=== PATIENT | female | born 1955 | race Caucasian/White ===

== ENCOUNTER 2017-01-18 09:07 | Outpatient (CLI) | payer BC ==
--- NOTE | 2017-01-18 11:00 | RAD ---
FIVE VIEWS OF THE CERVICAL SPINE: Date: 01-18-17 History: Cervical radiculopathy. FINDINGS: Images include frontal, open mouth odontoid, neutral lateral, flexion lateral and extension lateral views. There is fusion hardware and intervertebral disc device at C6-7. No evidence for hardware failure. N o prevertebral soft tissue swelling. Open mouth odontoid view demonstrates a normal appearing dense and C1-2 articulation. The neutral lateral imaging demonstrates mild disc space narrowing and posterior osteophyte formatio n at C5-6 with minimal C5-6 retrolisthesis in the 2-3 mm range. With flexion and extension, the mild retrolisthesis at C5-6 is unchanged. IMPRESSION: Disc space narrowing and posterior osteophyte formation at C5-6 with minimal associated retrolisthes is. Post-operative changes as detailed above. POS: [facility]
--- NOTE | 2017-01-18 12:11 | MRI ---
MRI CERVICAL SPINE WITH AND WITHOUT CONTRAST: Technique: Multiplanar, multisequential imaging of the cervical spine obtained. Post contrast images obtained with administration of 14 cc MultiHance IV. History: Cervical radiculopathy. Pain with radiation to upper extremity. FINDINGS: Post-operative changes are noted at C6-7. There is an interbody implant at C6-7 producing significan t metallic artifact. Comparison made to plain films. The cervical vertebrae maintain height and alignment. There is mild loss of disc space at C5-6. Mild degenerative changes. There is posterior disc bulge and spondylosis at C3-4 abutting the anterior cord. Facet and uncinate hypertrophy results in left foraminal stenosis at this level. C4-5: Posterior disc bulge and spondylosis abuts the anterior cord slightly to the right of midline. No significant foraminal stenosis apparent. C5-6: Posterior disc bulge and spondylosis abutt the anterior cord. Bilateral foraminal narrowing du e to facet and uncinate hypertrophy. C6-7: Fusion changes at C6-7. No significant disc bulge or spondylosis at this level. No evidence of foraminal stenosis. C7-T1: There is a slight anterior subluxation measured at 2-3 mm. There is a broad based disc bulge with spondolytic changes which abutt the posterior cord. No evidence of significant foraminal encroa chment. There is a syrinx in the cord extending from C6-7 disc to the mid body of T1 measuring 3.0 cm cranio caudal dimension in the sagittal plane. There is no evidence of cord enhancement associated with syr inx. Cord signal is otherwise normally maintained. IMPRESSION: 1. Post-operative changes at C6-7 with interbody implant producing metallic artifact. 2. At C7-T1 slight subluxation with posterior disc bulge and spondylosis abutting the cord. 3. Spondylytic changes at C4-5 and C5-6 as described above with foraminal encroachment. 4. 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 POS: [facility]
[2017-01-18] MEDS ORDERED: Gadobenate Dimeglumine 529 MG/1 ML (20ML VIAL) ONE (16:04)
== END 2017-01-18 09:08 | disposition home or self-care (01) ==
LOC: TBSIIMAG 09:07
PROVIDERS: ATTEND Surgery
DX: M50.121 Cervical disc disorder at C4-C5 level with radiculopathy (principal); M50.122 Cervical disc disorder at C5-C6 level with radiculopathy; M47.26 Other spondylosis with radiculopathy, lumbar region; M43.12 Spondylolisthesis, cervical region; M48.02 Spinal stenosis, cervical region; S13.180A Subluxation of C7/T1 cervical vertebrae, initial encounter; Z98.890 Other specified postprocedural states
CPT/HCPCS: 72050; 72156; A9579

== ENCOUNTER 2017-03-28 06:04 | Inpatient (IN) | payer BC ==
[2017-03-27 08:14] VITALS: BMI 27.4
[2017-03-28] MEDS ORDERED: CEFAZOLIN/Water 2 GM/20 ML SYRINGE ONE (06:19)
[2017-03-28] MEDS ORDERED: Sodium Chloride 0.9% 10 ML ONE ×2 (06:27→19:27)
[2017-03-28] MEDS ORDERED: Thrombin 5000 UNITS/5 ML VIAL ONE (06:27)
[2017-03-28] MEDS ORDERED: Famotidine/PF 20 mg/2ml Vial ONE (06:58)
[2017-03-28] MEDS ORDERED: Midazolam HCl 2 mg/2 ml Vial ONE (07:09)
[2017-03-28 07:10] LABS: Mean Corpuscular HGB CONC 32.6 g/dL (32.0-36.0); Mean Corpuscular Hemoglobin 33.2 pg (27.0-31.0); Mean Platelet Volume 7.4 fL (7.4-10.4); Platelet Count 198 thou/uL (130-400); RBC Distribution Width 10.8 % (11.5-14.5); White Blood Cell (WBC) Count 5.8 thou/uL (4.8-10.8)
[2017-03-28 07:18] LABS: PTT 30.4 SEC (22.9-36.1); Prothrombin Time 13.2 SEC (12.0-14.7)
[2017-03-28] MEDS ORDERED: Fentanyl 250 MCG/5 ML VIAL ONE (07:26)
[2017-03-28 07:30] LABS: Anion Gap 12 mmol/L (10-20); BUN (Urea Nitrogen) 14 mg/dL (9.8-20.1); Calc. Creatinine Clearance 94 mL/min (70-130); Calcium 9.5 mg/dL (7.8-10.44); Carbon Dioxide 26 mmol/L (22-29); Chloride 106 mmol/L (98-107); Estimated GFR-MDRD 81; Glucose 88 mg/dL (70-105); Sodium 140 mmol/L (136-145)
[2017-03-28] MEDS ORDERED: Ondansetron HCl/PF 4 MG/2 ML Vial IVP PRN ×2 (08:51→10:15)
[2017-03-28] MEDS ORDERED: Meperidine HCl/PF 25 MG/ML VIAL SLOW IVP PRN (08:51)
[2017-03-28] MEDS ORDERED: Promethazine HCl 25 MG/ML VIAL SLOW IVP PRN (08:51)
[2017-03-28] MEDS ORDERED: HYDROmorphone 2 MG/ML VIAL SLOW IVP PRN (08:51)
[2017-03-28] MEDS ORDERED: Promethazine HCl 25 MG/ML VIAL IM PRN ×2 (08:51→10:15)
[2017-03-28] MEDS ORDERED: Morphine Sulfate 2 MG/ML SYRINGE SLOW IVP PRN (08:51)
[2017-03-28] MEDS ORDERED: Acetaminophen 325 MG TAB PO PRN (10:15)
[2017-03-28] MEDS ORDERED: Milk Of Magnesia 30 ML UDCUP PO PRN (10:15)
[2017-03-28] MEDS ORDERED: Acetaminophen/Codeine 30-300mg Tablet PO PRN (10:15)
[2017-03-28] MEDS ORDERED: HYDROcodone/Acetaminophen 7.5/325 mg Tablet PO PRN (10:15)
[2017-03-28] MEDS ORDERED: Bisacodyl 10 MG SUPP PR PRN (10:15)
[2017-03-28] MEDS ORDERED: traMADol HCl 50 MG TAB PO PRN (10:15)
[2017-03-28] MEDS ORDERED: tiZANidine HCl 4 MG TAB PO PRN (10:15)
[2017-03-28] MEDS ORDERED: Fleet Enema 133 ML BOT PR PRN (10:15)
[2017-03-28] MEDS ORDERED: Mag-Al 1200 mg/1200 mg/30 ML UDCUP PO PRN (10:15)
[2017-03-28] MEDS ORDERED: Fentanyl 100 MCG/2 ML VIAL ONE (10:41)
[2017-03-28] MEDS ORDERED: Morphine 4 MG/ML VIAL SLOW IVP PRN (11:30)
[2017-03-28] MEDS: Sodium Chloride 0.9% 1,000 ML IV SCH (11:52)
[2017-03-28] MEDS ORDERED: Morphine PF 1 MG/ML SYR IVP PRN (12:00)
[2017-03-28] MEDS: Morphine 5 mg/5 ml in 0.9% NaCl/PF SYRINGE SLOW IVP PRN ×4 (12:20→20:30)
[2017-03-28] MEDS ORDERED: ALPRAZolam 0.25 MG TAB PO PRN (12:59)
[2017-03-28] MEDS: CEFAZOLIN/Water 2 GM/20 ML SYRINGE SLOW IVP SCH ×2 (14:31→22:18)
--- NOTE | 2017-03-28 15:12 | OP ---
DATE OF PROCEDURE: 03/28/2017 SURGEON: Kartik Freedman M.D. FILEMAKER DEVELOPER: Homero Akins PA-C. 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 PROCEDURE: 1. Anterior C5-C6 diskectomy with decompression of spinal cord and nerve roots, preparation of the e ndplates for placement of an interbody spacer packed with local bone autograft and allograft at C5-C6 for arthrodesis. 2. Anterior cervical plate and screw fixation, C5-C6. 3. Use of operative microscope for microdissection. 4. Exploration of spinal fusion C6-C7. PROCEDURE: After informed consent was obtained from the patient, the patient brought to OR 12. [facility] patient pause and identification was carried out. She was placed under excellent general endotrac heal anesthesia and positioned supine on the operating table. All appropriate points were padded. W e identified a right anterior oblique jayde that would allow for approach to C5-C6 segment. This is a reema her prior C6-C7 segment which was more transverse. This region was sterilely cleansed, prepared , and draped. Proper patient pause and identification was carried out. The wound was then opened wi th a combination of sharp, monopolar and blunt dissection proceeding lateral to the tracheoesophageal bundle and medial to the right carotid sheath and proceeded through scar tissue and identified the p revertebral layer of deep cervical fascia and identified the C6-C7 segments, the longus colli muscles were swept laterally. It was quite clear both under direct visualization and me testing to see if t here was any movement at the C6-C7 segment that there was no movement in that she had fused I then t urned my attention to the C5-C6 segment and prepared the vertebral bodies at C5, C6, and distraction at C5-C6 then occurred. Localization film confirmed our area of interest. We then brought the micro scope in for microdissection. A C5-C6 diskectomy was performed with decompression of spinal cord and nerve roots and preparation of the endplates at C5-C6 and for arthrodesis. An interbody spacer of a ppropriate dimension was placed, packed with local bone autograft obtained from same incision and all ograft at C5-C6 and the interbody spacer appeared to be well fixated. We then removed the microscope and cervical plate and screw fixation and final tightening at C5-C6 then occurred. The wound was co piously irrigated and closed in anatomic layers following meticulous hemostasis. We did secure a roni in in the operative bed.
[2017-03-28] MEDS ORDERED: Vecuronium 10 MG VIAL ONE (15:33)
[2017-03-28] MEDS ORDERED: Glycopyrrolate 0.2 MG/ML 5 ML SYRINGE ONE (15:33)
[2017-03-28] MEDS ORDERED: Ondansetron HCl/PF 4 MG/2 ML Vial ONE (15:33)
[2017-03-28] MEDS ORDERED: Propofol 200 MG/20 ML VIAL ONE (15:33)
[2017-03-28] MEDS ORDERED: Dexamethasone 20 MG/5 ML VIAL ONE (15:33)
[2017-03-28] MEDS ORDERED: Lidocaine 1% PF 5 ML VIAL ONE (15:33)
[2017-03-28] MEDS ORDERED: Docusate 100 MG CAP PO SCH (21:00)
[2017-03-28] MEDS ORDERED: ALPRAZolam 0.5 MG TAB PO SCH (21:00)
[2017-03-28] MEDS: Sucralfate 1 GM TAB PO SCH (21:51)
[2017-03-29] MEDS: Morphine 5 mg/5 ml in 0.9% NaCl/PF SYRINGE SLOW IVP PRN (01:50)
[2017-03-29] MEDS: CEFAZOLIN/Water 2 GM/20 ML SYRINGE SLOW IVP SCH (05:36)
[2017-03-29] MEDS: Sodium Chloride 0.9% 1,000 ML IV SCH (05:43)
[2017-03-29] MEDS ORDERED: Levothyroxine Sodium 50 MCG TAB PO SCH (06:00)
[2017-03-29 07:57] VITALS: BP 103/50; TEMP 98.6
[2017-03-29] MEDS ORDERED: Escitalopram Oxalate 20 mg Tablet PO SCH (09:00)
[2017-03-29] MEDS ORDERED: Multivit, Therapeutic 1 TAB PO SCH (09:00)
[2017-03-29] MEDS ORDERED: Fish Oil 1,000 MG CAP PO SCH (09:00)
[2017-03-29] MEDS ORDERED: Ascorbic Acid 500 mg Chewable Tablet PO SCH (09:00)
[2017-03-29] MEDS ORDERED: Bupropion 150 MG SR TAB PO SCH (09:00)
[2017-03-29] MEDS ORDERED: Lactinex Tablet PO SCH (09:00)
[2017-03-29] MEDS: Sucralfate 1 GM TAB PO SCH (09:05)
--- NOTE | 2017-03-29 09:07 | PRG ---
DATE OF SERVICE: 03/29/2017 Ms. Cooper is doing well postoperative day #1 from an anterior cervical diskectomy and fusion. Arm p ain is improved. She has good strength. Her drain output is minimal, we have removed it. We will p kirill on dismissal. We went over both intra and postoperative issues.
== END 2017-03-29 10:50 | disposition home or self-care (01) | DRG 473 ==
LOC: SURG A 06:04 → 3SE 11:32
PROVIDERS: ADMIT Surgery; ATTEND Surgery
PROC: 0RG10A0 Fusion of Cervical Vertebral Joint with Interbody Fusion Device, Anterior Approach, Anterior Column, Open Approach (ICD-10-PCS; principal; 2017-03-28)
PROC: 0RT30ZZ Resection of Cervical Vertebral Disc, Open Approach (ICD-10-PCS; 2017-03-28)
DX: M48.02 Spinal stenosis, cervical region (principal); Z86.73 Personal history of transient ischemic attack (TIA), and cerebral infarction without residual deficits; Z98.1 Arthrodesis status; M54.12 Radiculopathy, cervical region
CPT/HCPCS: 36415; 76001; 80048; 85027; 85610; 85730; 93005; 93010; A4216; C1713; J0131; J1100; J2001; J2250; J2270; J2405; J2704; J3010; J3490; S0028

== ENCOUNTER 2017-05-17 13:35 | Outpatient (CLI) | payer BC ==
--- NOTE | 2017-05-17 15:15 | RAD ---
FOUR VIEWS CERVICAL SPINE: Date: 05-17-17 History: Cervicalgia. Patient is post-surgery in 2018. Comparison: 01-18-17 FINDINGS: Again noted are post-surgical changes related to anterior cervical fusion at the C6-7 level. Alignmen t of the hardware in this region is stable. There has been interval post-surgical changes at the C5-6 level with anterior plate and screws in place and intradiscal prosthesis now present. The retrolisth esis at this level is not visualized. Vertebral body heights are within normal limits and there is no evidence of a fracture. There is suggestion of trace anterolisthesis of C7 on T1. No fracture is see n. Prevertebral soft tissues are within normal limits. IMPRESSION: 1. Trace anterolisthesis of C7 on T1. 2. Post-surgical changes related to anterior cervical fusion at the C5-6 and C6-7 levels without hard lama complication seen. POS: [facility]
== END 2017-05-17 13:36 | disposition home or self-care (01) ==
LOC: TBSIIMAG 13:35
PROVIDERS: ATTEND Surgery
DX: M54.2 Cervicalgia (principal); Z98.1 Arthrodesis status
CPT/HCPCS: 72040

== ENCOUNTER 2018-09-10 08:25 | Outpatient (CLI) | payer BC ==
--- NOTE | 2018-09-10 13:20 | NM ---
NUCLEAR MEDICINE GASTRIC EMPTYING SCAN: HISTORY: Nausea. RADIOPHARMACEUTICAL: 2.1 mCi Technetium 99m-sulfur colloid administered orally in scrambled eggs. FINDINGS: There is 18% emptying of the ingested gastric contents at 1 hour, 35% emptying at 2 hours, 44% emptyi ng at 3 hours, and 61% emptying at 4 hours. The calculated gastric emptying halftime measures 205 mi nutes. IMPRESSION: Delayed gastric emptying. POS: [facility]
== END 2018-09-10 08:26 | disposition home or self-care (01) ==
LOC: NM 08:25
PROVIDERS: ATTEND Internal Medicine Gastroenterology
DX: R11.0 Nausea (principal); K30 Functional dyspepsia
CPT/HCPCS: 78264; A9541

== ENCOUNTER 2018-09-14 09:32 | Outpatient (CLI) | payer BC ==
--- NOTE | 2018-09-14 10:44 | CT ---
CT ABDOMEN WITH ORAL AND IV CONTRAST: HISTORY: delayed gastric emptying, nausea COMPARISON: None FINDINGS: The lung bases are clear. The 1 cm right liver lobe cyst was also noted on the gallbladder ultrasound of 07/27/2018. The spleen, pancreas, left adrenal gland and both kidneys appear normal. There is a 2 cm indeterminate right adrenal nodule. The patient is post cholecystectomy. No free air, free fluid or lymphadenopathy seen. There are vascular calcifications without evidence of aneurysmal dilatation of the abdominal aorta. There are mild degenerative changes in the spine. The s mall bowel loops are not abnormally dilated. IMPRESSION: 1. Hepatic cyst 2. Indeterminate right adrenal nodule. Recommendation: Dedicated CT scan of the abdomen using the adrenal protocol is recommended.
[2018-09-14] MEDS ORDERED: ISOVUE-370 76%-LOCM 1 ML ONE (11:14)
== END 2018-09-14 09:33 | disposition home or self-care (01) ==
LOC: BICCT 09:32
PROVIDERS: ATTEND Internal Medicine Gastroenterology
DX: K30 Functional dyspepsia (principal); R11.0 Nausea; K76.89 Other specified diseases of liver; E27.8 Other specified disorders of adrenal gland
CPT/HCPCS: 36415; 74160; 80053

== ENCOUNTER 2023-05-05 12:29 | Outpatient (CLI) | payer OTHER | END 2023-05-05 12:30 | disposition home or self-care (01) | LOC: CT 12:29 | PROVIDERS: ATTEND Surgery | DX: M50.30 Other cervical disc degeneration, unspecified cervical region (principal); M47.812 Spondylosis without myelopathy or radiculopathy, cervical region; Z98.1 Arthrodesis status | CPT/HCPCS: 72125 ==

== ENCOUNTER 2023-06-15 11:46 | Outpatient (CLI) | payer OTHER ==
[2023-06-15 14:02] LABS: Hematocrit 38.7 % (34.9-44.5); Hemoglobin 13.1 g/dL (12.0-15.5); Mean Corpuscular HGB CONC 33.9 g/dL (32.0-36.0); Mean Corpuscular Hemoglobin 31.3 pg (27.0-33.0); Mean Corpuscular Volume 92.4 fl (81.6-98.3); Mean Platelet Volume 10.2 fl (7.4-10.4); Platelet Count 230 10x3/uL (150-450); RBC Distribution Width 12.6 % (11.5-14.5); Red Blood Cell (RBC) Count 4.19 10x6/uL (3.90-5.03); White Blood Cell (WBC) Count 5.4 10x3/uL (3.5-10.5)
[2023-06-15 14:19] LABS: Prothrombin Time 10.3 sec (9.5-12.1)
[2023-06-15 14:23] LABS: Anion Gap 11 mmol/L (10-20); BUN (Urea Nitrogen) 8 mg/dL (9.8-20.1); Calc. Creatinine Clearance 0 mL/min (70-130); Calcium 9.4 mg/dL (7.8-10.44); Carbon Dioxide 29 mmol/L (23-31); Chloride 99 mmol/L (98-107); Estimated GFR 95; Glucose 85 mg/dL (80-115); Potassium 4.1 mmol/L (3.5-5.1); Sodium 135 mmol/L (136-145)
== END 2023-06-15 11:47 | disposition home or self-care (01) ==
LOC: LABBT 11:46
PROVIDERS: ATTEND Surgery
DX: Z01.818 Encounter for other preprocedural examination (principal); M54.12 Radiculopathy, cervical region; M48.02 Spinal stenosis, cervical region
CPT/HCPCS: 80048; 85027; 85610; 85730; 93005; 93010